=== PATIENT | female | born 1985 | race African-American/Black ===

== ENCOUNTER 2017-11-19 17:33 | Inpatient (IN) | payer MEDICARE ==
[~2017-11-19] VITALS: Ht 157.5 cm; Wt 99.8 kg
[2017-11-19] MEDS ORDERED: KETOROLAC TROMETHAMINE 30 MG/ML VIAL IV STA (17:42)
[2017-11-19] MEDS ORDERED: SODIUM CHLORIDE 0.9% 1000ML 1,000 ML IV STA (17:42)
[2017-11-19] MEDS ORDERED: METOCLOPRAMIDE HCL 10 MG/2ML VIAL IV ONE (17:45)
[2017-11-19] MEDS ORDERED: DIPHENHYDRAMINE HCL INJ 50 MG/ML VIAL IV ONE (17:45)
[2017-11-19 18:22] LABS: BILIRUBIN,URINE NEGATIVE (NEGATIVE); CLARITY,URINE SL CLOUDY (CLEAR); COLOR,URINE YELLOW (YELLOW); KETONES,URINE NEGATIVE (NEGATIVE); LEUKOCYTE ESTERASE ,URINE NEGATIVE (NEGATIVE); NITRITE,URINE NEGATIVE (NEGATIVE); PREGNANCY TEST, URINE NEGATIVE (NEGATIVE); PROTEIN,URINE DIPSTICK TRACE (NEGATIVE); URINE UROBILINOGEN 0.2 mg/dL (0.2 - 1)
--- NOTE | 2017-11-19 18:26 | Diagnostic Imaging Report ---
History: Migraine headaches Comparison studies: None Technique: Axial images were obtained from the skull base to the vertex. Coronal and sagittal reconstructions obtained from the axial data. Findings: Scalp/skull: No abnormalities. No fractures, blastic or lytic lesions. Extra-axial spaces: No masses. No fluid collections. Brain sulci: Appropriate for age. Ventricles: Normal in size and configuration. No hydrocephalus. Parenchyma: No abnormal densities. No masses, hemorrhage, acute or chronic cortical vascular insults. Sellar/suprasellar region: No abnormalities Craniocervical junction: Patent foramen magnum. No Chiari one malformation. IMPRESSION: No abnormalities Signed by: Dr. Piero Villegas M.D. on 11/19/2017 6:23 PM
[2017-11-19 19:01] LABS: BASOPHILS % 0.4 % (0.0-1.0); EOSINOPHILS # (AUTO) 0.5 (0.0-0.4); EOSINOPHILS % 4.5 % (0.0-6.0); LYMPHOCYTES # (AUTO) 3.6 (1.0-3.2); MEAN CORPUSCULAR HEMOGLOBIN 18.3 pg (28-32); MEAN CORPUSCULAR HGB CONC 28.2 g/dL (31-35); MEAN CORPUSCULAR VOLUME 65.1 fL (81-99); MONOCYTES # (AUTO) 0.8 (0.2-0.8); MONOCYTES % 7.9 % (4.4-11.3); NEUTROPHILS # (AUTO) 5.6 (2.1-6.9); PLATELET COUNT 525 x10e3/uL (140-360); RED BLOOD COUNT 3.27 x10e6/uL (3.6-5.1); RED CELL DISTRIBUTION WIDTH 26.6 % (11.7-14.4)
[2017-11-19 19:04] LABS: HEMATOCRIT 21.3 % (34.2-44.1)
[2017-11-19 19:13] LABS: EPITHELIAL CELLS,URINE MODERATE /LPF
[2017-11-19 19:14] LABS: RBC,URINE >50 /HPF (0-5)
[2017-11-19 19:15] LABS: WBC,URINE (MAN) 0-5 /HPF (0-5)
[2017-11-19] MEDS ORDERED: SODIUM CHLORIDE 0.9% 250ML 250 ML IV ONE (19:15)
[2017-11-19] MEDS: SODIUM CHLORIDE 0.9% 1000ML 1,000 ML IV SCH (19:27)
[2017-11-19] MEDS ORDERED: ONDANSETRON HCL INJ 2 MG/ML VIAL IV PRN (19:30)
[2017-11-19 19:38] LABS: SODIUM 142 mmol/L (136-144)
[2017-11-19 19:39] LABS: ANION GAP 16.6 mmol/L (8-16); BLOOD UREA NITROGEN 18 mg/dL (8-26); BUN/CREATININE RATIO 20 (6-25); CARBON DIOXIDE 22 mmol/L (22-32); CHLORIDE 107 mmol/L (101-111); CREATININE, SERUM 0.9 mg/dL (0.6-1.1); EST GLOMERULAR FILTRATION RATE > 60 ML/MIN (60-); POTASSIUM 3.6 mmol/L (3.6-5.1)
[2017-11-19 19:40] LABS: GLUCOSE 91 mg/dL (74-118)
[2017-11-19 20:34] LABS: ALBUMIN 3.7 g/dL (3.5-5.0); ALKALINE PHOSPHATASE 39 IU/L (40-150); CALCIUM 9.3 mg/dL (8.4-10.2)
[2017-11-19 20:35] LABS: ALANINE AMINOTRANSFERASE < 6 IU/L (0-55)
[2017-11-19 21:21] VITALS: BP 139/89
[2017-11-19 21:44] LABS: FERRITIN 2.11 ng/mL (4.63-204.00); THYROID STIMULATING HORMONE 0.966 uIU/mL (0.350-4.940)
[2017-11-19 22:13] VITALS: BP 139/89
[2017-11-19] MEDS: SODIUM FERRIC GLUCONATE COMPLX 125 MG in SODIUM CHLORIDE 0.9% 100 ML 100 ML IV SCH (22:30)
[2017-11-19] MEDS: FAMOTIDINE 20 MG TAB PO SCH (22:56)
[2017-11-19 23:09] LABS: ANISOCYTOSIS MODERATE; MICROCYTOSIS MODERATE; PLATELET ESTIMATE MODERATELY INCREASED; PLATELET MORPHOLOGY COMMENT FEW LARGE; RBC MORPHOLOGY COMMENT ABNORMAL
[2017-11-19 23:11] LABS: OVALOCYTES FEW; POLYCHROMASIA FEW
[2017-11-19 23:12] LABS: GIANT PLATELETS FEW; LARGE PLATELETS FEW
--- NOTE | 2017-11-19 23:37 | History and Physical ---
PRIMARY CARE PHYSICIAN: None. CHIEF COMPLAINT: Headache. HISTORY OF PRESENT ILLNESS: This is a 32-year-old woman, who developed what she described as worsening migraine headache, came to the hospital. Found to have a hemoglobin A1c of 6.0. She denies any melena, hematochezia or abdominal pain. She does have a history of anemia and had transfusion about 1 year ago. Finally, she was admitted for further evaluation and management. Patient has menstrual cycles regularly and lasts about 3-7 days and he uses about 3-4 pads a day. PAST MEDICAL HISTORY: Anemia, hypertension, cigarette abuse, migraine headaches. PAST SURGICAL HISTORY: Tubal ligation. ALLERGIES: PER ELECTRONIC MEDICAL RECORD. FAMILY/SOCIAL HISTORY: Patient is . She denies any alcohol or illicits. She smokes a quarter pack of cigarettes per day. MEDICATIONS: Per electronic medical record. REVIEW OF SYSTEMS: Denies any dizziness, chest pain, shortness of breath, fever, chills, sweats, nausea, vomiting, diarrhea, back pain, leg pain. PHYSICAL EXAMINATION VITAL SIGNS: Reviewed. GENERAL: Tired-appearing woman resting in bed. HEENT: Anicteric. CARDIOVASCULAR: Normal S1, S2, without murmurs. ABDOMEN: Soft, nontender, nondistended. EXTREMITIES: No edema or calf tenderness. NEUROLOGIC: Alert and oriented x3. Moves all extremities. SKIN: Dry. PSYCHIATRIC: Normal affect. LABS: Reviewed. MEDICATIONS: Reviewed. ASSESSMENT: This is a 32-year-old woman. 1. Microcytic anemia. 2. Morbid obesity. 3. Cigarette abuse. 4. Hypertension. 5. Migraine headaches. PLAN 1. Obtain anemia panel. 2. Will transfuse blood. 3. Iron level low. Will start IV Ferrlecit. 4. Will give oral iron. 5. Obtain endoscopy outpatient. This is likely a chronic anemia. 6. Follow up labs. 7. Screen for diabetes and obtain lipid panel. 8. Utilize SCD, add Pepcid. Job#: [id number] CQ
[2017-11-20] VITALS (9 sets, daily range): BP systolic 121–164; BP diastolic 72–90
[2017-11-20] MEDS ORDERED: SODIUM CHLORIDE 0.9% 250ML 250 ML ONE ×2 (01:29→18:08)
[2017-11-20] MEDS: SODIUM CHLORIDE 0.9% 1000ML 1,000 ML IV SCH ×2 (05:24→22:07)
[2017-11-20 07:27] LABS: BASOPHILS # (AUTO) 0.1 (0.0-0.1); BASOPHILS % 0.6 % (0.0-1.0); EOSINOPHILS # (AUTO) 0.5 (0.0-0.4); EOSINOPHILS % 4.8 % (0.0-6.0); HEMATOCRIT 24.4 % (34.2-44.1); HEMOGLOBIN 7.4 g/dL (12.0-16.0); LYMPHOCYTES # (AUTO) 3.8 (1.0-3.2); LYMPHOCYTES % 39.9 % (18.0-39.1); MEAN CORPUSCULAR HGB CONC 30.3 g/dL (31-35); MEAN CORPUSCULAR VOLUME 69.3 fL (81-99); MONOCYTES # (AUTO) 0.7 (0.2-0.8); NEUTROPHILS # (AUTO) 4.5 (2.1-6.9); NEUTROPHILS % 47.4 % (38.7-80.0); PLATELET COUNT 390 x10e3/uL (140-360); RED BLOOD COUNT 3.52 x10e6/uL (3.6-5.1); RED CELL DISTRIBUTION WIDTH 25.5 % (11.7-14.4)
[2017-11-20 07:48] LABS: ALBUMIN 3.1 g/dL (3.5-5.0); ALKALINE PHOSPHATASE 34 IU/L (40-150); ANION GAP 10.7 mmol/L (8-16); BLOOD UREA NITROGEN 9 mg/dL (7-26); BUN/CREATININE RATIO 12 (6-25); CALCIUM 8.2 mg/dL (8.4-10.2); CARBON DIOXIDE 22 mmol/L (22-29); CHLORIDE 111 mmol/L (98-107); CREATININE, SERUM 0.75 mg/dL (0.57-1.11); EST GLOMERULAR FILTRATION RATE > 60 ML/MIN (60-); GLUCOSE 85 mg/dL (74-118); POTASSIUM 3.7 mmol/L (3.5-5.1); SODIUM 140 mmol/L (136-145)
[2017-11-20 07:49] LABS: ALANINE AMINOTRANSFERASE < 6 IU/L (0-55)
[2017-11-20] MEDS ORDERED: FAMOTIDINE20 MG PO (07:49)
[2017-11-20] MEDS ORDERED: FERROUS SULFAT325 MG PO (07:49)
[2017-11-20] MEDS: FERROUS SULFATE 325 MG TAB PO SCH ×2 (07:58→16:19)
[2017-11-20] MEDS: FAMOTIDINE 20 MG TAB PO SCH ×2 (07:58→16:18)
[2017-11-20 08:00] LABS: CHOL/HDL RATIO 3.9 (3.0-3.6)
[2017-11-20] MEDS ORDERED: SODIUM CHLORIDE 0.9% 250ML 250 ML IV ONE (08:00)
--- NOTE | 2017-11-20 08:11 | Discharge Summary ---
PRINCIPAL DIAGNOSES 1. Moderate to severe microcytic anemia. 2. Morbid obesity. 3. Cigarette abuse. 4. Hypertension. 5. Migraine headaches. SECONDARY DIAGNOSES 1. Migraine headaches. 2. Hypertension. CHIEF COMPLAINT: Headache. HISTORY OF PRESENT ILLNESS: A 32-year-old woman who developed headache and found to have low blood counts. She is admitted for further evaluation and management. Refer to the H and P for further details. HOSPITAL COURSE: The patient was found to have severe anemia. Hemoglobin was 6. She received 2 units of packed red blood cells. Hemoglobin increased to 7.4. Therefore, she will be given 2 additional units. Thereafter, will obtain a blood count. She also was found to have iron deficiency anemia and started on IV Ferrlecit and oral iron. The patient needs followup with transfer car operator drier as outpatient. Once blood has been given and if hemoglobin has improved significantly, the patient will transition home. Will plan to follow up with gynecology outpatient. DISCHARGE MEDICATIONS: Per electronic medical records. FOLLOWUP 1. Primary care doctor in 1 week. 2. Follow up with me in 1 week. 3. Follow up with transfer car operator drier in 3 days. MARTIN PEREZ MD Job#: [id number] [place]
[2017-11-20] MEDS: SODIUM FERRIC GLUCONATE COMPLX 125 MG in SODIUM CHLORIDE 0.9% 100 ML 100 ML IV SCH (08:50)
[2017-11-20 09:23] LABS: EOSINOPHILS % (MANUAL) 5 % (0-7); LYMPHOCYTES % (MANUAL) 41 % (19-48); MONOCYTES % (MANUAL) 5 % (3.4-9.0); NEUTROPHILS % (MANUAL) 49 % (40-74)
[2017-11-20 09:24] LABS: PLATELET ESTIMATE ADEQUATE; PLATELET MORPHOLOGY COMMENT FEW GIANT
[2017-11-20 09:25] LABS: ANISOCYTOSIS MODE; HYPOCHROMASIA MODERATE; POIKILOCYTOSIS SLIGHT; RBC MORPHOLOGY COMMENT ABNORMAL
[2017-11-20] MEDS: HYDRALAZINE HCL 25 MG TAB PO SCH ×2 (16:18→22:09)
[2017-11-20] MEDS ORDERED: ACETAMINOPHEN 325 MG TAB PO PRN (21:00)
[2017-11-21 01:02] VITALS: BP 158/90
[2017-11-21 01:34] LABS: BASOPHILS # (AUTO) 0.1 (0.0-0.1); BASOPHILS % 0.8 % (0.0-1.0); EOSINOPHILS # (AUTO) 0.7 (0.0-0.4); EOSINOPHILS % 5.2 % (0.0-6.0); HEMATOCRIT 32.4 % (34.2-44.1); HEMOGLOBIN 10.4 g/dL (12.0-16.0); LYMPHOCYTES # (AUTO) 4.2 (1.0-3.2); LYMPHOCYTES % 31.5 % (18.0-39.1); MEAN CORPUSCULAR HEMOGLOBIN 22.7 pg (28-32); MEAN CORPUSCULAR HGB CONC 32.1 g/dL (31-35); MEAN CORPUSCULAR VOLUME 70.6 fL (81-99); MONOCYTES # (AUTO) 0.9 (0.2-0.8); MONOCYTES % 6.9 % (4.4-11.3); NEUTROPHILS # (AUTO) 7.3 (2.1-6.9); NEUTROPHILS % 54.8 % (38.7-80.0); PLATELET COUNT 451 x10e3/uL (140-360); RED BLOOD COUNT 4.59 x10e6/uL (3.6-5.1); RED CELL DISTRIBUTION WIDTH 25.4 % (11.7-14.4)
[2017-11-21 03:13] LABS: HYPOCHROMASIA MODERATE; MICROCYTOSIS SLIGHT
[2017-11-21 03:14] LABS: PLATELET ESTIMATE SLIGHTLY INCREASED; RBC MORPHOLOGY COMMENT ABNORMAL
[2017-11-21 03:15] LABS: ANISOCYTOSIS MODERATE; PLATELET MORPHOLOGY COMMENT FEW GIANT
[2017-11-21] MEDS: HYDRALAZINE HCL 25 MG TAB PO SCH (05:40)
[2017-11-21 05:48] VITALS: BP 160/82
[2017-11-21] MEDS: FAMOTIDINE 20 MG TAB PO SCH ×2 (08:11→16:37)
[2017-11-21] MEDS: SODIUM FERRIC GLUCONATE COMPLX 125 MG in SODIUM CHLORIDE 0.9% 100 ML 100 ML IV SCH (08:11)
[2017-11-21] MEDS: FERROUS SULFATE 325 MG TAB PO SCH ×2 (08:11→16:37)
[2017-11-21 08:20] VITALS: BP 140/80
--- NOTE | 2017-11-21 10:07 | Consultation ---
DATE OF CONSULTATION: November 20, 2017 CARDIOLOGY CONSULTATION REQUESTING PHYSICIAN: Dr. Anthony Faye REASON FOR CONSULTATION: Bradycardia. HPI: This is a 32-year-old female that presented with headache. According to the patient, she started having a headache that is located on the side of her head that was unbearable that she decided to come into the emergency room for evaluation. In the ER, she was found to have a hemoglobin of 6. She was admitted for further evaluation. She stated she has a history of anemia and has been taking ferrous sulfate for that, but she does not follow up for the anemia or for the migraine headache. She denied any chest pain, any shortness of breath, any diaphoresis or dizziness. Cardiology was consulted for bradycardia. According to the bedside nurse, during blood transfusion, she was noted to have heart rate in the 40s. PAST MEDICAL HISTORY 1. Migraine headaches. 2. Anemia. 3. Uterine fibroids. PAST SURGICAL HISTORY: Tubal ligation. FAMILY HISTORY: Noncontributory. SOCIAL HISTORY: She smokes occasionally. MEDICATIONS: She is on iron tablet. ALLERGIES: SHE IS NOT ALLERGIC TO ANY MEDICATION. REVIEW OF SYSTEMS: Negative, except those mentioned above. PHYSICAL EXAMINATION VITALS: Temperature 98, heart rate 63, blood pressure 160/83, respirations 20, oxygen saturation 98% on room air. GENERAL: She is awake, alert and oriented times 3. HEENT: Mucous membranes moist. NECK: Supple. LUNGS: Bilaterally clear to auscultation. CARDIOVASCULAR: S1 and S2 present. ABDOMEN: Soft. NEUROLOGIC: Intact. EXTREMITIES: No edema. LABS: Sodium 140, potassium 3.7, chloride 111, CO2 22, BUN 9, creatinine 0.75. Glucose 85. White blood cells 7.3, hemoglobin 10.4, hematocrit 32.4, platelets 451. ASSESSMENT AND PLAN 1. Anemia. 2. History of migraine headaches. 3. Hypertension. 4. Asymptomatic bradycardia. 5. Tobacco abuse. Will go ahead and get an echocardiogram to assess the LV and valve function. Will avoid AV blockers. She received 4 units of PRBCs. Will check her thyroid function tests. Her EKG is showing sinus rhythm with heart rate in the 70s. She is asymptomatic. Further cardiac workup pending clinical course. Thank you for this consultation. Dictated by Mely Blanc NP. Job#: [id number]
[2017-11-21] MEDS: SODIUM CHLORIDE 0.9% 1000ML 1,000 ML IV SCH (11:03)
[2017-11-21 11:24] VITALS: BP 159/87
[2017-11-21] MEDS ORDERED: HYDRALAZINE HCL 25 MG TAB PO SCH (14:00)
[2017-11-21 15:38] VITALS: BP 130/73
[2017-11-21] MEDS ORDERED: HYDRALAZINE HCL25 MG PO (15:50)
[2017-11-21 17:20] VITALS: BP 130/73
--- NOTE | 2017-11-21 17:43 | Discharge Summary ---
ADDENDUM: The patient remained in the hospital due to bradyarrhythmia, and started on hydralazine with improvement in heart rate. The patient was evaluated by Dr. Trinh. Echocardiogram done which was normal ejection fraction in the left ventricle. The patient subsequently will be going home. She will need to follow up with Dr. Trinh as well in one to 2 weeks. I will discharge her with hydralazine 25 mg p.o. q.8 h. MARTIN PEREZ MD Job#: [id number] [facility]
== END 2017-11-21 17:10 | disposition home or self-care (01) | DRG 812 ==
LOC: ER 17:33 → ERHOLD 19:27 → MED/SURG3 21:05
PROVIDERS: ADMIT Internal Medicine; ATTEND Internal Medicine
PROC: 30230N1 Transfusion of Nonautologous Red Blood Cells into Peripheral Vein, Open Approach (ICD-10-PCS; principal; 2017-11-19)
DX: D50.9 Iron deficiency anemia, unspecified (principal); Z68.41 Body mass index [BMI] 40.0-44.9, adult; E66.01 Morbid (severe) obesity due to excess calories; I10 Essential (primary) hypertension; G44.89 Other headache syndrome; I49.8 Other specified cardiac arrhythmias; Z72.0 Tobacco use; G43.019 Migraine without aura, intractable, without status migrainosus
CPT/HCPCS: 36415; 36430; 70450; 80053; 80061; 81001; 81025; 82607; 82728; 83036; 83540; 84443; 84466; 85025; 86850; 86900; 86920; 87086; 93005; 93306; 99284; J1200; J1885; J2765; J2916; J7030; J7050; P9016